=== PATIENT | male | born 1985 | race Caucasian/White ===

== ENCOUNTER 2017-07-20 19:51 | Emergency (ER) | payer MEDICAID ==
[~2017-07-20] VITALS: Ht 167.6 cm; Wt 68.2 kg
[~2017-07-20 19:51] MED LIST: CHLO25CA10 PO; FOLI1TAB16 PO; MULT-1179 PO; PANT40TA4 PO; THI100T PO
[2017-07-20 20:01] VITALS: BP 169/100
[2017-07-20] MEDS ORDERED: BUPIVAcaine/PF 2.5 mg/ml (0.25%) 30ml vial IJ ONE (22:20)
[2017-07-20] MEDS ORDERED: TETanus/Pertussis (Acell)/Diphther VAC/PF (Tdap-Adult) 0.5ml syringe IM ONE (22:20)
== END 2017-07-21 00:32 | disposition home or self-care (01) ==
LOC: ER 19:52
DX: S61.217A Laceration without foreign body of left little finger without damage to nail, initial encounter (principal); Z79.899 Other long term (current) drug therapy; W26.9XXA Contact with unspecified sharp object(s), initial encounter; Y93.89 Activity, other specified; Y92.89 Other specified places as the place of occurrence of the external cause; Y99.8 Other external cause status
CPT/HCPCS: 90471; 90715; 99283; A6255; A6449; J3490

== ENCOUNTER 2018-02-28 22:45 | Emergency (ER) | payer MEDICAID ==
[~2018-02-28] VITALS: Ht 167.6 cm; Wt 70.9 kg
[2018-03-01] MEDS ORDERED: phenobarbital inj 260 MG in normal saline 100ml IV soln 99 ML IV STA (00:07)
[2018-03-01] MEDS ORDERED: normal saline 1000ML IV soln IVB ONE (00:10)
[2018-03-01 02:04] VITALS: BP 133/84
[2018-03-01 02:09] LABS: ALANINE AMINOTRANSFERASE 38 U/L (12-78); ALBUMIN 3.4 G/DL (3.4-5.0); ALKALINE PHOSPHATASE 122 IU/L (46-116); ANION GAP 13 (8-16); ASPARTATE AMINO TRANSFERASE 37 U/L (10-37); BILIRUBIN,TOTAL 0.4 MG/DL (0.1-1.0); BLOOD UREA NITROGEN 17 MG/DL (7-18); BUN/CREATININE RATIO 19.5 (5.4-32.0); CHLORIDE 101 MMOL/L (99-107); CREATININE 0.87 MG/DL (0.60-1.10); GLUCOSE 88 MG/DL (70-104); POTASSIUM 3.5 MMOL/L (3.5-5.1); SODIUM 137 MMOL/L (135-145); TOTAL CARBON DIOXIDE 23.4 MMOL/L (24-32); TOTAL PROTEIN 6.7 G/DL (6.4-8.2); eGFR > 90 ML/MIN
[2018-03-01 02:20] LABS: MAGNESIUM 1.9 MG/DL (1.5-2.4)
[2018-03-01 02:21] LABS: ETHANOL < 0.010 GM/DL (0.0-0.010)
[2018-03-01 02:22] LABS: BASOPHILS % (AUTO) 0.1 % (0-1); EOSINOPHILS # (AUTO) 0.2 X10'3 (0-0.9); EOSINOPHILS % (AUTO) 2.3 % (0-6); HEMATOCRIT 38.7 % (42.0-52.0); HEMOGLOBIN 13.4 g/dl (14.0-17.9); LYMPHOCYTES # (AUTO) 0.8 X10'3 (1.1-4.8); LYMPHOCYTES % (AUTO) 12.9 % (21-51); MEAN CORPUSCULAR HEMOGLOBIN 29.2 PG (27.0-31.0); MEAN CORPUSCULAR HGB CONC 34.7 % (33.0-36.5); MEAN CORPUSCULAR VOLUME 84.2 FL (78-98); MEAN PLATELET VOLUME 7.3 FL (7.4-10.4); MONOCYTES # (AUTO) 0.5 X10'3 (0-0.9); MONOCYTES % (AUTO) 7.8 % (2-12); NEUTROPHILS % (AUTO) 76.9 % (42-75); PLATELET COUNT 142 X10'3 (140-440); RED CELL DISTRIBUTION WIDTH 12.8 % (11.5-14.5); WHITE BLOOD COUNT 6.5 X10'3 (4.5-11.0)
== END 2018-03-01 02:53 | disposition home or self-care (01) ==
LOC: ER 22:45
DX: F10.239 Alcohol dependence with withdrawal, unspecified (principal); R00.2 Palpitations; Z79.899 Other long term (current) drug therapy; Y90.9 Presence of alcohol in blood, level not specified
CPT/HCPCS: 36415; 80053; 80320; 83735; 84439; 84443; 85025; 93005; 96365; 99284; J2560; J7030

== ENCOUNTER → 2018-06-11 | Emergency (ER) | payer BC, MEDICAID ==
[~2018-06-11] VITALS: Ht 167.6 cm; Wt 71.0 kg
[~2018-06-11] MED LIST changes: +PANT-47 PO; +Potassium Cl inj 20 MEQ, magnesium sulf injection 2 GM, folic acid inj. 1 MG, thiamine ... IV ONE; +normal saline 1000ML IV soln IVB ONE; +pantoprazole 40 MG vial IV ONE
[2018-06-11 10:20] VITALS: BP 153/109
[2018-06-11 11:49] LABS: BASOPHILS % (AUTO) 0.9 % (0-1); EOSINOPHILS # (AUTO) 0.1 X10'3 (0-0.9); EOSINOPHILS % (AUTO) 1.6 % (0-6); HEMATOCRIT 45.7 % (42.0-52.0); HEMOGLOBIN 15.7 g/dl (14.0-17.9); LYMPHOCYTES # (AUTO) 0.6 X10'3 (1.1-4.8); LYMPHOCYTES % (AUTO) 13.1 % (21-51); MEAN CORPUSCULAR HEMOGLOBIN 29.5 PG (27.0-31.0); MEAN CORPUSCULAR HGB CONC 34.3 g/dL (33.0-36.5); MEAN CORPUSCULAR VOLUME 85.9 FL (78-98); MEAN PLATELET VOLUME 7.2 FL (7.4-10.4); MONOCYTES # (AUTO) 0.4 X10'3 (0-0.9); MONOCYTES % (AUTO) 7.6 % (2-12); NEUTROPHILS # (AUTO) 3.8 X10'3 (1.8-7.7); NEUTROPHILS % (AUTO) 76.8 % (42-75); PLATELET COUNT 127 X10'3 (140-440); RED BLOOD COUNT 5.32 X10'6 (4.70-6.10); RED CELL DISTRIBUTION WIDTH 13.1 % (11.5-14.5); WHITE BLOOD COUNT 4.9 X10'3 (4.5-11.0)
[2018-06-11 11:56] LABS: PROTHROMBIN TIME 10.2 SECONDS (9.0-12.0)
[2018-06-11 11:58] LABS: ALANINE AMINOTRANSFERASE 128 U/L (12-78); ALBUMIN/GLOBULIN RATIO 1.1 (1.1-1.5); ALKALINE PHOSPHATASE 103 IU/L (46-116); ANION GAP 8 (8-16); ASPARTATE AMINO TRANSFERASE 153 U/L (10-37); BILIRUBIN,TOTAL 1.2 MG/DL (0.1-1.0); BLOOD UREA NITROGEN 19 MG/DL (7-18); BUN/CREATININE RATIO 17.9 (5.4-32.0); CALCIUM 9.1 MG/DL (8.5-10.1); CHLORIDE 100 MMOL/L (99-107); CREATININE 1.06 MG/DL (0.60-1.10); GLUCOSE 99 MG/DL (70-104); LIPASE 416 U/L (73-393); POTASSIUM 3.9 MMOL/L (3.5-5.1); SODIUM 135 MMOL/L (135-145); TOTAL CARBON DIOXIDE 27.3 MMOL/L (24-32); TOTAL PROTEIN 7.8 G/DL (6.4-8.2); eGFR 82 ML/MIN
[2018-06-11 13:51] LABS: OCCULT BLOOD STOOL NEGATIVE (Neg)
== END | disposition home or self-care (01) ==
LOC: ER 10:15
DX: K29.21 Alcoholic gastritis with bleeding (principal); F10.10 Alcohol abuse, uncomplicated; F12.90 Cannabis use, unspecified, uncomplicated; Z79.899 Other long term (current) drug therapy; Y90.9 Presence of alcohol in blood, level not specified
CPT/HCPCS: 36415; 80053; 82272; 83690; 85025; 85610; 96365; 96366; 96375; 99283; C9113; J3411; J3475; J3480; J3490; J7030

== ENCOUNTER 2018-10-28 16:46 | Emergency (ER) | payer SELFPAY ==
[~2018-10-28] VITALS: Ht 172.7 cm; Wt 65.0 kg
[~2018-10-28 16:46] MED LIST changes: -Potassium Cl inj 20 MEQ, magnesium sulf injection 2 GM, folic acid inj. 1 MG, thiamine ... IV ONE; -normal saline 1000ML IV soln IVB ONE; -pantoprazole 40 MG vial IV ONE
--- NOTE | 2018-10-28 17:29 | NUR ---
FAST EXAM PERFORMED BY DR HARRELL. NEGATIVE FAST EXAM.
[2018-10-28 17:48] LABS: CLARITY,URINE SLIGHTLY CLOUDY (Clear); COLOR,URINE YELLOW (Yellow); GLUCOSE, URINE NEGATIVE (Neg); KETONES,URINE NEGATIVE (Neg); LEUKOCYTE ESTERASE ,URINE NEGATIVE (Neg); NITRITES, URINE NEGATIVE (Neg); OCCULT BLOOD,URINE SMALL (Neg); PROTEIN,URINE 100 mg/dl (Neg); UROBILINOGEN,URINE 0.2 E.U/dL (0.2-1.0)
[2018-10-28 17:50] LABS: URINE AMPHETAMINE SCREEN NEGATIVE (Neg); URINE BARBITUATE SCREEN NEGATIVE (Neg); URINE BENZODIAZEPINES SCREEN NEGATIVE (Neg); URINE CANNABINOID SCREEN POSITIVE (Neg); URINE COCAINE SCREEN NEGATIVE (Neg); URINE METHADONE SCREEN NEGATIVE (Neg); URINE OPIATE SCREEN NEGATIVE (Neg); URINE PHENCYCLIDINE SCREEN NEGATIVE (Neg)
[2018-10-28 17:51] LABS: UA COLLECTION TYPE CLN CATCH MIDSTREAM
[2018-10-28 17:56] LABS: BASOPHILS % (AUTO) 0.3 % (0-1); EOSINOPHILS % (AUTO) 0.1 % (0-6); HEMATOCRIT 54.2 % (42.0-52.0); LYMPHOCYTES # (AUTO) 0.9 X10'3 (1.1-4.8); LYMPHOCYTES % (AUTO) 9.5 % (21-51); MEAN CORPUSCULAR HEMOGLOBIN 29.1 PG (27.0-31.0); MEAN CORPUSCULAR HGB CONC 34.1 g/dL (33.0-36.5); MEAN CORPUSCULAR VOLUME 85.4 FL (78-98); MEAN PLATELET VOLUME 7.2 FL (7.4-10.4); MONOCYTES # (AUTO) 0.2 X10'3 (0-0.9); MONOCYTES % (AUTO) 2.5 % (2-12); NEUTROPHILS # (AUTO) 7.9 X10'3 (1.8-7.7); NEUTROPHILS % (AUTO) 87.6 % (42-75); PLATELET COUNT 290 X10'3 (140-440); RED BLOOD COUNT 6.34 X10'6 (4.70-6.10); RED CELL DISTRIBUTION WIDTH 13.7 % (11.5-14.5)
[2018-10-28 17:57] LABS: BACTERIA,URINE NONE SEEN /HPF (Neg); COARSE GRANULAR CAST 0-3 /LPF (NEGATIVE); FINE GRANULAR CAST 0-3 /LPF (NEGATIVE); MUCUS STRANDS MODERATE /LPF (Neg); RBC,URINE 0-2 /HPF (0-2); SQUAMOUS EPITHELIAL CELL,UR FEW /LPF (FEW); WBC,URINE 0-4 /HPF (0-4)
[2018-10-28 18:00] VITALS: BP 126/76
[2018-10-28 18:00] LABS: HEMOGLOBIN 18.5 g/dl (14.0-17.9)
[2018-10-28 18:05] LABS: ALANINE AMINOTRANSFERASE 42 U/L (12-78); ALBUMIN 5.1 G/DL (3.4-5.0); ALBUMIN/GLOBULIN RATIO 1.3 (1.1-1.5); ALKALINE PHOSPHATASE 85 IU/L (46-116); ANION GAP 20 (8-16); ASPARTATE AMINO TRANSFERASE 49 U/L (10-37); BILIRUBIN,TOTAL 1.1 MG/DL (0.1-1.0); BLOOD UREA NITROGEN 13 MG/DL (7-18); BUN/CREATININE RATIO 10.2 (5.4-32.0); CALCIUM 9.7 MG/DL (8.5-10.1); CHLORIDE 107 MMOL/L (99-107); CREATININE 1.27 MG/DL (0.60-1.10); GLUCOSE 124 MG/DL (70-104); POTASSIUM 3.6 MMOL/L (3.5-5.1); SODIUM 148 MMOL/L (135-145); TOTAL CARBON DIOXIDE 20.6 MMOL/L (24-32); eGFR 66 ML/MIN
[2018-10-28 18:08] LABS: ETHANOL 0.299 GM/DL (0.0-0.010); TROPONIN I < 0.04 NG/ML (0.0-0.05)
--- NOTE | 2018-10-28 18:11 | NUR ---
patient off trauma status
== END 2018-10-28 18:48 ==
LOC: ER 16:47
DX: S00.81XA Abrasion of other part of head, initial encounter (principal); F10.229 Alcohol dependence with intoxication, unspecified; F12.90 Cannabis use, unspecified, uncomplicated; R79.1 Abnormal coagulation profile; R00.0 Tachycardia, unspecified; Z79.899 Other long term (current) drug therapy; V89.2XXA Person injured in unspecified motor-vehicle accident, traffic, initial encounter; Y93.89 Activity, other specified; Y92.488 Other paved roadways as the place of occurrence of the external cause; Y99.8 Other external cause status; Y90.0 Blood alcohol level of less than 20 mg/100 ml
CPT/HCPCS: 36415; 70450; 71045; 72125; 80053; 80305; 80320; 81001; 84484; 85025; 85610; 86885; 86900; 86901; 93005; 99284

== ENCOUNTER 2019-02-04 20:15 | Emergency (ER) | payer BC, OTHER ==
[~2019-02-04] VITALS: Ht 167.6 cm; Wt 64.5 kg
[2019-02-04 20:30] VITALS: BP 158/104
[2019-02-04 21:08] LABS: BASOPHILS # (AUTO) 0.1 X10'3 (0-0.2); BASOPHILS % (AUTO) 0.9 % (0-1); EOSINOPHILS % (AUTO) 0.2 % (0-6); HEMATOCRIT 47.2 % (42.0-52.0); HEMOGLOBIN 16.5 g/dl (14.0-17.9); LYMPHOCYTES # (AUTO) 1.1 X10'3 (1.1-4.8); LYMPHOCYTES % (AUTO) 16.5 % (21-51); MEAN CORPUSCULAR HGB CONC 34.9 g/dL (33.0-36.5); MEAN CORPUSCULAR VOLUME 86.1 FL (78-98); MONOCYTES # (AUTO) 0.3 X10'3 (0-0.9); MONOCYTES % (AUTO) 4.7 % (2-12); NEUTROPHILS # (AUTO) 5.4 X10'3 (1.8-7.7); NEUTROPHILS % (AUTO) 77.7 % (42-75); PLATELET COUNT 130 X10'3 (140-440); RED BLOOD COUNT 5.48 X10'6 (4.70-6.10); RED CELL DISTRIBUTION WIDTH 13.4 % (11.5-14.5); WHITE BLOOD COUNT 6.9 X10'3 (4.5-11.0)
[2019-02-04 21:19] LABS: ALANINE AMINOTRANSFERASE 81 U/L (12-78); ALBUMIN/GLOBULIN RATIO 0.9 (1.1-1.5); ALKALINE PHOSPHATASE 153 IU/L (46-116); ANION GAP 16 (8-16); ASPARTATE AMINO TRANSFERASE 196 U/L (10-37); BILIRUBIN,TOTAL 0.9 MG/DL (0.1-1.0); BLOOD UREA NITROGEN 15 MG/DL (7-18); BUN/CREATININE RATIO 14.7 (5.4-32.0); CALCIUM 8.6 MG/DL (8.5-10.1); CHLORIDE 98 MMOL/L (99-107); CREATININE 1.02 MG/DL (0.60-1.10); GLUCOSE 115 MG/DL (70-104); POTASSIUM 4.1 MMOL/L (3.5-5.1); SODIUM 140 MMOL/L (135-145); TOTAL CARBON DIOXIDE 26.4 MMOL/L (24-32); TOTAL PROTEIN 8.4 G/DL (6.4-8.2); eGFR 85 ML/MIN
[2019-02-04 21:39] LABS: CLARITY,URINE TURBID (Clear); COLOR,URINE YELLOW (Yellow); GLUCOSE, URINE NEGATIVE (Neg); KETONES,URINE NEGATIVE (Neg); LEUKOCYTE ESTERASE ,URINE LARGE (Neg); NITRITES, URINE NEGATIVE (Neg); OCCULT BLOOD,URINE LARGE (Neg); PROTEIN,URINE 100 mg/dl (Neg); UROBILINOGEN,URINE 0.2 E.U/dL (0.2-1.0)
[2019-02-04] MEDS ORDERED: normal saline 1000ML IV soln IVB ONE (21:40)
[2019-02-04] MEDS ORDERED: LORazepam 2 mg/ml vial IV ONE (21:45)
[2019-02-04 21:49] LABS: UA COLLECTION TYPE CLN CATCH MIDSTREAM
[2019-02-04 21:50] LABS: BACTERIA,URINE 4+ /HPF (Neg); RBC,URINE NONE SEEN /HPF (0-2); SQUAMOUS EPITHELIAL CELL,UR FEW /LPF (FEW); WBC,URINE 30-50 /HPF (0-4)
[2019-02-04 21:51] LABS: URINE AMPHETAMINE SCREEN NEGATIVE (Neg); URINE BARBITUATE SCREEN NEGATIVE (Neg); URINE BENZODIAZEPINES SCREEN NEGATIVE (Neg); URINE CANNABINOID SCREEN NEGATIVE (Neg); URINE COCAINE SCREEN NEGATIVE (Neg); URINE METHADONE SCREEN NEGATIVE (Neg); URINE OPIATE SCREEN NEGATIVE (Neg); URINE PHENCYCLIDINE SCREEN NEGATIVE (Neg)
[2019-02-04] MEDS ORDERED: cephalexin 250mg capsule PO ONE (22:05)
[2019-02-04 22:09] LABS: ETHANOL 0.466 GM/DL (0.0-0.010)
--- NOTE | 2019-02-04 22:55 | NUR ---
PT TOOK IV OUT ON OWN AND WALKING DOWN HALLS. PT ESCORTED BACK TO ROOM, INSTRUCTED HE NEEDS TO FIND A RIDE HOME. PT CALLED ROOMMATE FOR RIDE.
--- NOTE | 2019-02-07 10:57 | NUR ---
CALLED AND GOT A MESSAGE " THE PERSON YOU CALLED CAN NOT RECIEVE ANY CALLS AT THIS TIME, WE ARE SORRY FOR ANY INCOVIENCE THIS HAS CAUSED" THEN THE LINE GOES . NEED TO GET THE NAME OF A PHARMACY TO CALL IN RX FOR KEFLEX 500MG QID X 7 DAYS.
--- NOTE | 2019-02-13 07:28 | NUR ---
LETTER WAS SENT ON 02/10/19// PT. NEEDED KEFLEX 500MG QID X 7 DAYS
--- NOTE | 2019-02-13 12:35 | NUR ---
PT. CALLED BACK AFTER LETTER WAS SENT. HE WENT TO URGENT CARE AND WAS PLACED ON [facility] TO GET HIM OFF ALCOHOL AND GIVEN BACTRIM PO BID X 10 DAYS AND IS ON HIS 5TH DAY OF BACTRIM. PT. FEELING MUCH BETTER.
== END 2019-02-04 23:07 | disposition home or self-care (01) ==
LOC: ER 20:15
DX: F10.229 Alcohol dependence with intoxication, unspecified (principal); F12.90 Cannabis use, unspecified, uncomplicated; Z79.899 Other long term (current) drug therapy; Y90.0 Blood alcohol level of less than 20 mg/100 ml
CPT/HCPCS: 36415; 80053; 80305; 80320; 81001; 85025; 87077; 87088; 87186; 96374; 99284; J2060; J7030